=== PATIENT | female | born 1960 | race Caucasian/White ===

== ENCOUNTER 2016-08-16 19:51 | Observation (INO) | payer MEDICARE ==
[~2016-08-16 19:51] MED LIST: ADVAIR 50028 BLISTE1 INH; ASPIR 8181 M1 PO; ASTEPRO205.5 MCG/; ATARAX25 MG PO; ATORVASTATIN CA10 M1 PO; BACTRIM 400-801 EAC1 PO; BISOPROLOL FUMAR5 M1 PO; BUPROPION XL300 M1 PO; CELEBREX200 MG PO; CENTRUM TABLET1 TAB PO; CLONIDINE HCL0.1 MG PO; COUMADIN3 MG PO; COUMADIN4 MG PO; COUMADIN5 MG PO; CYCLOBENZAPRINE10 M1 PO; DEMADEX20 M1 PO; DULCOLAX10 MG/SUPP RC; DULCOLAX5 MG PO; FEOSOL1 TAB PO; FLAX SEED OIL1000 MG PO; GLUCOPHAGE500 M3 PO; K-TAB ER20 ME1 PO; LASIX80 M1 PO; LIDODERM700 MG AP; LOVENOX40 MG/0.4 SQ; LUNESTA2 MG PO; MELOXICAM7.5 M1 PO; MULTIVITAMIN1 CAP PO; MYCOSTATIN15 GM TP; NEURONTIN600 M1 PO; NEURONTIN600 MG PO; NEXIUM40 M1 PO; NORCO 5-325 TA1 EACH PO; NORCO 5/325 TAB1 TAB PO; ONDANSETRON HCL4 M2 PO; POTASSIUM CHLO20 ME3 PO; PREDNISONE2.5 M1 PO; PREVACID30 M2 PO; PROZAC40 MG PO; REQUIP0.5 M1 PO; SENOKOT-S TABLE1 TAB PO; TORSEMIDE20 M2 PO; TRAMADOL HCL50 M2 PO; TRULICITY0.75 MG/0. SQ; TYLENOL650 MG PO; ZOLPIDEM TARTRA10 MG PO; [UNRECOGNIZED DRUG - OTHER] PO
[2016-08-16] MEDS ORDERED: MELATONIN10 M6 PO (20:12)
[2016-08-16] MEDS ORDERED: ZYLOPRIM300 M1 PO (20:12)
[2016-08-16] MEDS ORDERED: ZYRTEC10 M7 PO (20:14)
[2016-08-16] MEDS ORDERED: LASIX40 M1 PO (20:15)
[2016-08-16] MEDS ORDERED: COZAAR50 M1 PO (20:17)
[2016-08-16] MEDS ORDERED: IMODIUM A-D2 M3 PO (20:18)
[2016-08-16] MEDS ORDERED: VITAMIN D31000 UNI3 PO (20:19)
[2016-08-16] MEDS ORDERED: ACTOS30 M1 PO (20:23)
[2016-08-16] MEDS ORDERED: GLIMEPIRIDE1 M1 PO (20:23)
[2016-08-16 21:06] LABS: URINE BILIRUBIN NEGATIVE (NEG); URINE BLOOD NEGATIVE (NEG); URINE GLUCOSE (UA) NEGATIVE (NEG); URINE KETONE NEGATIVE (NEG); URINE LEUKOCYTE ESTERASE NEGATIVE (NEG); URINE NITRITE NEGATIVE (NEG); URINE PROTEIN SMALL (NEG)
[2016-08-16 21:12] LABS: URINE APPEARANCE CLEAR; URINE COLOR YELLOW
[2016-08-16 21:15] LABS: URINE RBC 0 /[HPF] (0-5); URINE WBC 0-5 /[HPF] (0-5)
[2016-08-16 21:17] LABS: HCT-HEMATOCRIT 31.5 % (34.0-49.0); HGB-HEMOGLOBIN 10.5 gm/dl (12.0-15.5); MCH (MEAN CORPUSCULAR HGB) 30.6 pg (28.0-32.0); MCHC MEAN CORPUSCULAR HGB CONC 33.3 % (32.0-36.0); MCV (MEAN CELL VOLUME) 91.8 fl (82.0-96.0); MEAN PLATELET VOLUME 11.5 cmc (9.4-12.4); NEUTROPHIL-AUTOMATED 4.2 tho/cmm (1.6-8.0); PLATELET COUNT 189 tho/cmm (150-450); RED BLOOD COUNT 3.43 mil/cmm (4.00-5.20); RED CELL DISTRIBUTION WIDTH 14.6 % (12.4-16.4); WHITE BLOOD COUNT 7.5 tho/cmm (4.0-10.0)
[2016-08-16 21:18] LABS: BASO % 0.5 % (0-2); EOS % 1.9 % (0-7); EOSINOPHIL ABSOLUTE COUNT 0.1 tho/cmm (0.0-0.7); IMMATURE GRANULOCYTES ABSOLUTE 0.57 tho/cmm (0-0.03); IMMATURE GRANULOCYTES PERCENT 7.6 % (0-0.3); LYMPH % 28.8 % (20-45); LYMPH ABSOLUTE COUNT 2.2 tho/cmm (0.8-4.5); MONO % 4.9 % (0-12); MONOCYTE ABSOLUTE COUNT 0.4 tho/cmm (0.0-1.2); NEUTROPHIL ABSOLUTE COUNT 4.2 tho/cmm (1.6-8.0); NEUTROPHILS % 56.3 % (40-80)
[2016-08-16 21:37] LABS: ALB/GLOB RATIO 0.6 (0.8-2.0); ALBUMIN 2.7 g/dl (3.5-5.0); ALKALINE PHOSPHATASE 242 U/L (33-138); ALT/SGPT 39 U/L (12-78); BILIRUBIN,TOTAL 0.5 mg/dl (0-1.5); BLOOD UREA NITROGEN 21 mg/dl (6-24); C-REACTIVE PROTEIN 12.3 mg/dl (0-0.9); CALCIUM 8.4 mg/dl (8.5-10.5); CARBON DIOXIDE-VENOUS 23 mmol/L (22-32); CHLORIDE 105 mmol/l (96-110); CREATININE 1.24 mg/dl (0.50-1.10); GLUCOSE 129 mg/dL (70-110); SODIUM 137 mmol/L (135-145); eGFR VALUE FOR BLACK 57 mL/Min
[2016-08-16 21:38] LABS: ESR-ERYTHROCYTE SED RATE 128 mm/hr (0-30)
[2016-08-16 21:39] LABS: ANION GAP 14 mmol/L (0-20); AST/SGOT 42 U/L (10-40); POTASSIUM 4.5 mmol/L (3.7-5.1)
[2016-08-17 06:41] LABS: HCT-HEMATOCRIT 31.4 % (34.0-49.0); HGB-HEMOGLOBIN 10.2 gm/dl (12.0-15.5); MCH (MEAN CORPUSCULAR HGB) 30.3 pg (28.0-32.0); MCHC MEAN CORPUSCULAR HGB CONC 32.5 % (32.0-36.0); MCV (MEAN CELL VOLUME) 93.2 fl (82.0-96.0); MEAN PLATELET VOLUME 10.9 cmc (9.4-12.4); NEUTROPHIL-AUTOMATED 4.4 tho/cmm (1.6-8.0); PLATELET COUNT 202 tho/cmm (150-450); RED BLOOD COUNT 3.37 mil/cmm (4.00-5.20); RED CELL DISTRIBUTION WIDTH 14.7 % (12.4-16.4); WHITE BLOOD COUNT 7.3 tho/cmm (4.0-10.0)
[2016-08-17 06:50] LABS: ANION GAP 11 mmol/L (0-20); BASO % 0.6 % (0-2); BLOOD UREA NITROGEN 19 mg/dl (6-24); CALCIUM 8.5 mg/dl (8.5-10.5); CARBON DIOXIDE-VENOUS 26 mmol/L (22-32); CHLORIDE 106 mmol/l (96-110); CREATININE 1.34 mg/dl (0.50-1.10); EOSINOPHIL ABSOLUTE COUNT 0.1 tho/cmm (0.0-0.7); GLUCOSE 126 mg/dL (70-110); IMMATURE GRANULOCYTES ABSOLUTE 0.44 tho/cmm (0-0.03); IMMATURE GRANULOCYTES PERCENT 6.1 % (0-0.3); LYMPH % 27.1 % (20-45); MONOCYTE ABSOLUTE COUNT 0.4 tho/cmm (0.0-1.2); NEUTROPHIL ABSOLUTE COUNT 4.4 tho/cmm (1.6-8.0); NEUTROPHILS % 60.2 % (40-80); POTASSIUM 4.2 mmol/L (3.7-5.1); SODIUM 139 mmol/L (135-145); eGFR VALUE FOR BLACK 52 mL/Min
[2016-08-17] MEDS ORDERED: ALLERGY RELIE15.8 ML (11:24)
[2016-08-18 06:37] LABS: BLOOD UREA NITROGEN 27 mg/dl (6-24); CALCIUM 9.3 mg/dl (8.5-10.5); CARBON DIOXIDE-VENOUS 30 mmol/L (22-32); CHLORIDE 99 mmol/l (96-110); CREATININE 1.41 mg/dl (0.50-1.10); SODIUM 137 mmol/L (135-145); eGFR VALUE FOR BLACK 49 mL/Min
[2016-08-18 06:40] LABS: ANION GAP 13 mmol/L (0-20); GLUCOSE 243 mg/dL (70-110); POTASSIUM 5.2 mmol/L (3.7-5.1)
[2016-08-19 05:38] LABS: ANION GAP 13 mmol/L (0-20); CALCIUM 9.3 mg/dl (8.5-10.5); CARBON DIOXIDE-VENOUS 29 mmol/L (22-32); CHLORIDE 101 mmol/l (96-110); CREATININE 1.46 mg/dl (0.50-1.10); GLUCOSE 213 mg/dL (70-110); POTASSIUM 4.6 mmol/L (3.7-5.1); SODIUM 138 mmol/L (135-145); eGFR VALUE FOR BLACK 47 mL/Min
[2016-08-19 05:41] LABS: BLOOD UREA NITROGEN 43 mg/dl (6-24)
[2016-08-19] MEDS ORDERED: PREDNISONE10 M1 PO (13:31)
[2016-08-19] MEDS ORDERED: NYAMYC15 GM TP (13:44)
[2016-12-27] MEDS ORDERED: HUMALOG100 UNIT/2 SC (16:32)
[2016-12-27] MEDS ORDERED: LANTUS SOL100 UNIT/1 SC (16:33)
[2016-12-27] MEDS ORDERED: PREDNISONE5 M1 PO (16:33)
[2016-12-27] MEDS ORDERED: MIRAPEX0.25 M1 PO (16:33)
[2016-12-27] MEDS ORDERED: ANORO ELLIPTA1 EAC1 INH (16:34)
[2016-12-27] MEDS ORDERED: PLAQUENIL200 M1 PO (16:34)
[2016-12-30] MEDS ORDERED: MACROBID 100 M100 M1 PO (12:00)
[2016-12-30] MEDS ORDERED: NORCO 5-325 TA1 EACH PO (12:04)
[2016-12-30] MEDS ORDERED: TYLENOL325 M2 PO (12:05)
[2016-12-30] MEDS ORDERED: STOP HOME MEDICATION (12:11)
== END 2016-08-19 15:05 ==
LOC: EDMED 19:51 → EMR2 23:28 → 5EA 08-17 00:25
PROVIDERS: Emergency Medicine; Internal Medicine Critical Care Medicine; Registered Nurse; ADMIT Hospitalist
DX: M10.9 Gout, unspecified (principal); M19.90 Unspecified osteoarthritis, unspecified site; I12.9 Hypertensive chronic kidney disease with stage 1 through stage 4 chronic kidney disease, or unspecified chronic kidney disease; E11.22 Type 2 diabetes mellitus with diabetic chronic kidney disease; N18.9 Chronic kidney disease, unspecified; G47.30 Sleep apnea, unspecified; E87.6 Hypokalemia; E66.01 Morbid (severe) obesity due to excess calories; K21.9 Gastro-esophageal reflux disease without esophagitis; Z79.899 Other long term (current) drug therapy; Z79.82 Long term (current) use of aspirin; E78.5 Hyperlipidemia, unspecified; F32.9 Major depressive disorder, single episode, unspecified; Z96.643 Presence of artificial hip joint, bilateral; Z90.710 Acquired absence of both cervix and uterus; Z98.49 Cataract extraction status, unspecified eye; Z88.6 Allergy status to analgesic agent; Z88.8 Allergy status to other drugs, medicaments and biological substances
CPT/HCPCS: G0378; G8978-GP-CK; G8979-GP-CJ; G8980-GP-CK; G8987-GO-CK; G8988-GO-CJ; G8989-GO-CJ; J1170; J1815; J2405; J7512; P9612